=== PATIENT | female | born 1940 | race African-American/Black ===

== ENCOUNTER → 2017-07-01 | Outpatient (CLI) | payer BC ==
[2017-07-01] MEDS: IOHEXOL 300 MG/ML 100ML VIAL. IV (11:32)
[2017-07-01] MEDS: IOHEXOL 240 MG/ML 50ML VIAL. PO (11:32)
== END | disposition home or self-care (01) ==
LOC: CT 09:55
DX: I70.0 Atherosclerosis of aorta (principal); R63.4 Abnormal weight loss; Z90.710 Acquired absence of both cervix and uterus
CPT/HCPCS: 74177; Q9966; Q9967

== ENCOUNTER → 2017-07-02 | Outpatient (CLI) | payer BC | END | disposition home or self-care (01) | LOC: RAD 11:24 | DX: J40 Bronchitis, not specified as acute or chronic (principal) | CPT/HCPCS: 71046 ==

== ENCOUNTER 2017-07-17 14:14 | Inpatient (IN) | payer BC ==
[2017-07-17 15:08] LABS: ADD MAN DIFF? NO
[2017-07-17 15:09] LABS: BASO # 0.1 x10^3/uL (0.0-0.2); BASO % 1 % (0-3); EOS # 0.4 x10^3/uL (0.0-0.7); EOS % 5 % (0-3); HEMATOCRIT 39.5 % (36.0-47.0); LYMPH # 1.8 x10^3/uL (1.0-4.8); LYMPH % 23 % (24-48); MEAN CORPUSCULAR HEMOGLOBIN 27 pg (25-35); MEAN CORPUSCULAR HGB CONC 33 g/dL (31-37); MEAN CORPUSCULAR VOLUME 82 fL (79-100); MONO # 0.6 x10^3/uL (0.0-1.1); MONO % 8 % (0-9); NEUT # 4.9 x10^3uL (1.8-7.7); NEUT % 64 % (31-73); PLATELET COUNT 277 x10^3/uL (140-400); RED BLOOD COUNT 4.81 x10^6/uL (3.50-5.40); RED CELL DISTRIBUTION WIDTH 15.9 % (11.5-14.5); WHITE BLOOD COUNT 7.7 x10^3/uL (4.0-11.0)
[2017-07-17 15:21] LABS: ANION GAP 10 (6-14); BLOOD UREA NITROGEN 14 mg/dL (7-20); BUN/CREATININE RATIO 16 (6-20); CALCIUM 9.7 mg/dL (8.5-10.1); CARBON DIOXIDE 26 mmol/L (21-32); CHLORIDE 105 mmol/L (98-107); CREATININE 0.9 mg/dL (0.6-1.0); GFR 73.5; GLUCOSE 100 mg/dL (70-99); POTASSIUM 3.7 mmol/L (3.5-5.1); SODIUM 141 mmol/L (136-145)
[2017-07-17] MEDS: IV NORMAL SALINE 1000ML BAG 1,000 ML IV ×2 (15:25→17:25)
[2017-07-17 15:27] LABS: ALBUMIN 3.6 g/dL (3.4-5.0); ALBUMIN/GLOBULIN RATIO 0.9 (1.0-1.7); ALK PHOS 86 U/L (46-116); ALT (SGPT) 22 U/L (14-59); AST (SGOT) 16 U/L (15-37); LIPASE 79 U/L (73-393); TOTAL BILIRUBIN 0.5 mg/dL (0.2-1.0); TOTAL PROTEIN 7.7 g/dL (6.4-8.2)
[2017-07-17 16:09] LABS: THYROID STIM HORMONE (TSH) 1.837 uIU/mL (0.358-3.74)
[2017-07-17] MEDS ORDERED: ONDANSETRON PF 4 MG/2 ML VIAL. IV (16:30)
[2017-07-17] MEDS ORDERED: ACETAMINOPHEN 325 MG TABLET. PO (16:30)
[2017-07-17 16:58] LABS: NT-PRO BNP 42 pg/mL (0-449)
[2017-07-17 17:36] LABS: BILIRUBIN,URINE NEGATIVE (NEG); COLOR,URINE YELLOW; GLUCOSE,URINE NEGATIVE (NEG); NITRITE,URINE NEGATIVE (NEG); PH,URINE 6.5; PROTEIN,URINE NEGATIVE (NEG-TRACE)
[2017-07-17 17:41] LABS: CLARITY,URINE CLEAR
[2017-07-17 17:45] LABS: BACTERIA,URINE MANY /HPF (0-FEW); RBC,URINE RARE /HPF (0-2); SQUAMOUS EPITHELIAL CELL,UR MANY /LPF; YEAST,URINE PRESENT /HPF
[2017-07-17] MEDS ORDERED: DEXTROSE 50% 25 GM / 50ML DISP.SYRIN. IV (20:45)
[2017-07-17 21:23] LABS: POC GLUCOSE 139 mg/dL (70-99)
[2017-07-17] MEDS: ZOLPIDEM 5 MG TABLET. PO (21:52)
[2017-07-17] MEDS: amLODIPine BESYLATE 5 MG TABLET PO (21:53)
[2017-07-18] MEDS: IV NORMAL SALINE 1000ML BAG 1,000 ML IV (05:01)
[2017-07-18 05:06] LABS: ADD MAN DIFF? NO
[2017-07-18 05:19] LABS: BASO # 0.1 x10^3/uL (0.0-0.2); BASO % 1 % (0-3); EOS # 0.6 x10^3/uL (0.0-0.7); EOS % 9 % (0-3); HEMATOCRIT 37.4 % (36.0-47.0); HEMOGLOBIN 12.2 g/dL (12.0-15.5); LYMPH # 2.2 x10^3/uL (1.0-4.8); LYMPH % 34 % (24-48); MEAN CORPUSCULAR HEMOGLOBIN 27 pg (25-35); MEAN CORPUSCULAR HGB CONC 33 g/dL (31-37); MEAN CORPUSCULAR VOLUME 82 fL (79-100); MONO # 0.5 x10^3/uL (0.0-1.1); MONO % 8 % (0-9); NEUT # 3.1 x10^3uL (1.8-7.7); NEUT % 48 % (31-73); PLATELET COUNT 246 x10^3/uL (140-400); RED BLOOD COUNT 4.54 x10^6/uL (3.50-5.40); RED CELL DISTRIBUTION WIDTH 15.9 % (11.5-14.5); WHITE BLOOD COUNT 6.5 x10^3/uL (4.0-11.0)
[2017-07-18 05:36] LABS: ANION GAP 7 (6-14); BLOOD UREA NITROGEN 11 mg/dL (7-20); CALCIUM 9.6 mg/dL (8.5-10.1); CARBON DIOXIDE 27 mmol/L (21-32); CHLORIDE 108 mmol/L (98-107); CREATININE 0.8 mg/dL (0.6-1.0); GFR 84.2; GLUCOSE 79 mg/dL (70-99); POTASSIUM 3.6 mmol/L (3.5-5.1); SODIUM 142 mmol/L (136-145)
[2017-07-18] MEDS: INSULIN ASPART 300 UNITS/3 ML INSULN.PEN SQ ×3 (07:50→16:10)
[2017-07-18] MEDS: amLODIPine BESYLATE 5 MG TABLET PO ×2 (07:52→16:10)
[2017-07-18 08:36] LABS: POC GLUCOSE 92 mg/dL (70-99)
[2017-07-18 11:59] LABS: POC GLUCOSE 109 mg/dL (70-99)
[2017-07-18] MEDS: IOHEXOL 300 MG/ML 100ML VIAL. IV (13:30)
[2017-07-18] MEDS ORDERED: CONTRAST GIVEN MC (13:30)
[2017-07-18 16:46] LABS: POC GLUCOSE 94 mg/dL (70-99)
[2017-07-18] MEDS ORDERED: SIMVASTATIN 10 MG TABLET PO (21:00)
[2017-07-19] MEDS ORDERED: ASPIRIN CHEWABLE 81 MG TABLET. PO (08:00)
[2017-07-19] MEDS ORDERED: LOSARTAN POTASSIUM 50 MG TABLET. PO (09:00)
[2017-07-19] MEDS ORDERED: amLODIPine BESYLATE 5 MG TABLET PO (09:00)
== END 2017-07-18 18:16 | disposition home or self-care (01) | DRG 103 ==
LOC: ER 14:14 → 5 NORTH 17:27
DX: R51 Headache (principal); E11.9 Type 2 diabetes mellitus without complications; R42 Dizziness and giddiness; I10 Essential (primary) hypertension; M54.9 Dorsalgia, unspecified; E78.00 Pure hypercholesterolemia, unspecified; E78.5 Hyperlipidemia, unspecified; R63.4 Abnormal weight loss; Z87.891 Personal history of nicotine dependence; Z90.710 Acquired absence of both cervix and uterus; Z82.49 Family history of ischemic heart disease and other diseases of the circulatory system; Z68.22 Body mass index [BMI] 22.0-22.9, adult; G51.0 Bell's palsy
CPT/HCPCS: 36415; 70450; 71046; 71250; 80048; 80053; 81001; 82962; 83690; 83880; 84443; 85025; 87086; 93005; 93306; 94618; J1815; J7030

== ENCOUNTER → 2019-06-03 | Outpatient (CLI) | payer BC ==
[2017-12-11 10:00] VITALS: BP 126/59
[~2019-06-03] MED LIST: POLY17PO29 PO
--- NOTE | 2019-06-03 17:12 | KCIC ---
PROCEDURE: WRIST 2V LEFT STUDY DATE: 06/03/2019 CLINICAL INDICATION / HISTORY: Left wrist pain. TECHNIQUE: AP and lateral views of the left wrist were obtained COMPARISON: None FINDINGS: The radiocarpal and intracarpal relationships are maintained. There is narrowing of the radiocarpal interval. There is no fracture or dislocation. The bone density is normal. There are calcifications in the region of the angular fibrocartilage. 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 Electronically signed by: Rohini Duncan MD (06/03/2019 5:10 PM) [facility]
== END ==
LOC: KCIC 12:14
PROVIDERS: ATTEND Internal Medicine
DX: M25.832 Other specified joint disorders, left wrist (principal)
CPT/HCPCS: 73100

== ENCOUNTER → 2020-06-28 | Outpatient (CLI) | payer BC ==
[2017-12-11 10:00] VITALS: BP 126/59
--- NOTE | 2020-06-28 12:47 | RAD ---
Examination: 1. Digital bilateral diagnostic mammogram. 2. Limited bilateral breast ultrasound. INDICATION: 79-year-old woman due for screening presents with lateral left breast pain and swelling a fter recent vaccination. COMPARISON: 04/05/2014 TECHNIQUE: CC and MLO views of both breasts were obtained with 2-D and 3-D technique and reviewed wit h computer-aided detection. Targeted ultrasound of both breasts was subsequently pursued. FINDINGS: Heterogeneously dense breast parenchyma. Negative left mammogram. Right mammogram shows architectural variation in the posterior medial right breast best seen on the C C tomographic image 36 of 54 that appears unchanged from 2014 but was pursued with additional imaging by targeted ultrasound which showed no definite sonographic correlate. In addition, an asymmetry in the superior right breast at the approximate 11:30 o'clock position 5 cm from the nipple, representing a possible developing asymmetry was also pursued with targeted ultraso und and identified a 7 mm echogenic round mass with no internal vascularity. Margins are indistinct. No axillary adenopathy. Targeted ultrasound of the patient's reported area of breast pain showed no sonographic correlate and no suspicious sonographic findings. IMPRESSION: Probably benign findings in the right breast and negative findings in the left breast. In the right breast, these findings are suspected to represent sequelae of old, unrecognized trauma. Six-month follow-up right diagnostic mammogram and targeted right breast ultrasound is recommended. Clinical management of left breast pain is also recommended. BI-RADS Category 3 Probably benign findings Patient entered into a reminder system with targeted due date for next mammogram. Electronically signed by: Rohini Duncan MD (06/28/2020 12:44 PM) [id number]
== END ==
LOC: MAMMO 09:05
PROVIDERS: ATTEND Internal Medicine
DX: N64.4 Mastodynia (principal)
CPT/HCPCS: 76641; 77066; G0279; 77062

== ENCOUNTER → 2020-12-28 | Outpatient (CLI) | payer BC ==
[2017-12-11 10:00] VITALS: BP 126/59
--- NOTE | 2020-12-28 14:04 | RAD ---
US BREAST RT, MG DIAGNOSTICUNILAT MAMMO 12/28/2020 1:38 PM INDICATION: Asymptomatic screening mammogram. COMPARISON: 6 month follow-up probably benign findings of the right breast. Asymmetry in the right br east at 11:30 position 5 cm from the nipple with associated 7 mm sonographic echogenic round mass. TECHNIQUE: 3D tomosynthesis of the right breast was performed in CC and MLO projections. 2D views wer e obtained from the 3D data. CAD was utilized as needed. Targeted sonographic evaluation of the right breast was performed. FINDINGS: Right breast: There are no suspicious microcalcifications, masses or areas of architectural distortio n. Findings are stable. Targeted sonographic evaluation of the right breast was performed at the 11:30 position, 5 cm from th e nipple. There is a oval mass with central increased echogenicity, stable from the prior examination . No significant posterior characteristics are identified. Mass appears parallel in orientation. Cons ideration may be given for intramammary lymph node with thickened cortex versus area of fat necrosis. Findings are probably benign. Additional 6 month follow-up mammogram and ultrasound recommended. IMPRESSION: Probably benign findings of the right breast as detailed above. BI-RADS category: 3; Probably Benign Recommendations: Six-month follow-up imaging is recommended. Electronically signed by: Sofie Cruz MD (12/28/2020 2:01 PM) [id number]
== END ==
LOC: MAMMO 12:57
PROVIDERS: ATTEND Internal Medicine
DX: N63.11 Unspecified lump in the right breast, upper outer quadrant (principal)
CPT/HCPCS: 76641; 77065